=== PATIENT | female | born 1950 | race Caucasian/White ===

== ENCOUNTER 2016-10-26 09:10 | Outpatient (CLI) | payer OTHER ==
--- NOTE | 2016-10-26 10:55 | DIAGNOSTIC IMAGING REPORT ---
PROCEDURE: US NONVASCULAR EXTREMITY-LEFT INDICATION: CONTUSION HEMATOMA,NODULE LEFT UPPER ARM TECHNIQUE: Joseph scale and color Doppler ultrasound. COMPARISON: None. FINDINGS: There is a 1.1 x 1.0 x 0.9 cm subcutaneous midline soft tissue mass proximal to the antecubital fossa demonstrating mixed echogenicity (primarily slightly hyperechoic with peripheral areas of decreased echogenicity). There is a single focus of vascular flow peripherally. Underlying vascular structures are unremarkable. IMPRESSION: 1. 1.1 x 1.0 x 0.9 cm subcutaneous soft tissue mass proximal to the antecubital fossa, likely a hematoma.
[2016-11-16] MEDS ORDERED: ATENOLOL25 MG PO (11:45)
[2016-11-16] MEDS ORDERED: OMEPRAZOLE20 M1 PO (11:45)
[2016-11-16] MEDS ORDERED: VITAMIN C500 M1 PO (11:45)
[2016-11-16] MEDS ORDERED: BUPROPION HCL300 MG PO (11:46)
[2016-11-16] MEDS ORDERED: LIPITOR80 MG PO (11:46)
[2016-11-16] MEDS ORDERED: CILOSTAZOL100 MG PO (11:47)
[2016-11-16] MEDS ORDERED: FLUOXETINE HCL20 MG PO (11:48)
[2016-11-16] MEDS ORDERED: IRON325 MG PO (11:48)
[2016-11-16] MEDS ORDERED: LEVOTHYROXINE25 MCG PO (11:48)
[2016-11-16] MEDS ORDERED: VITAMIN D-31000 UNIT PO (11:49)
[2016-11-16] MEDS ORDERED: WARFARIN SODIU7.5 MG PO (11:49)
[2016-11-16] MEDS ORDERED: WARFARIN SODIUM5 MG PO (11:50)
[2016-11-16] MEDS ORDERED: PROBIOTI1 PO (11:51)
[2016-11-16] MEDS ORDERED: IMODIUM A-D (11:52)
== END 2016-10-26 23:00 ==
LOC: US SRH 09:10
DX: M79.9 Soft tissue disorder, unspecified (principal)

== ENCOUNTER 2016-11-03 08:53 | Outpatient (CLI) | payer OTHER ==
[2016-11-16] MEDS ORDERED: VITAMIN C500 M1 PO (11:45)
[2016-11-16] MEDS ORDERED: ATENOLOL25 MG PO (11:45)
[2016-11-16] MEDS ORDERED: OMEPRAZOLE20 M1 PO (11:45)
[2016-11-16] MEDS ORDERED: BUPROPION HCL300 MG PO (11:46)
[2016-11-16] MEDS ORDERED: LIPITOR80 MG PO (11:46)
[2016-11-16] MEDS ORDERED: CILOSTAZOL100 MG PO (11:47)
[2016-11-16] MEDS ORDERED: LEVOTHYROXINE25 MCG PO (11:48)
[2016-11-16] MEDS ORDERED: FLUOXETINE HCL20 MG PO (11:48)
[2016-11-16] MEDS ORDERED: IRON325 MG PO (11:48)
[2016-11-16] MEDS ORDERED: VITAMIN D-31000 UNIT PO (11:49)
[2016-11-16] MEDS ORDERED: WARFARIN SODIU7.5 MG PO (11:49)
[2016-11-16] MEDS ORDERED: WARFARIN SODIUM5 MG PO (11:50)
[2016-11-16] MEDS ORDERED: PROBIOTI1 PO (11:51)
[2016-11-16] MEDS ORDERED: IMODIUM A-D (11:52)
== END 2016-11-03 23:00 ==
LOC: LAB SRH 08:53
DX: R19.7 Diarrhea, unspecified (principal)
CPT/HCPCS: 90112; 90124; 90455; 99784

== ENCOUNTER 2016-11-18 12:27 | Outpatient (CLI) | payer OTHER ==
[~2016-11-18 12:27] MED LIST: ATENOLOL25 MG PO; BUPROPION HCL300 MG PO; CILOSTAZOL100 MG PO; FLUOXETINE HCL20 MG PO; IMODIUM A-D; IRON325 MG PO; LEVOTHYROXINE25 MCG PO; LIPITOR80 MG PO; OMEPRAZOLE20 M1 PO; PROBIOTI1 PO; VITAMIN C500 M1 PO; VITAMIN D-31000 UNIT PO; WARFARIN SODIU7.5 MG PO; WARFARIN SODIUM5 MG PO
--- NOTE | 2016-11-18 15:09 | DIAGNOSTIC IMAGING REPORT ---
PROCEDURE: XR BARIUM ENEMA W/AIR CONTRAST INDICATION: Incomplete colonoscopy. TECHNIQUE: Double contrast study. Fluoroscopy time, 3.9 minutes; 2204.08 mGy. 17 fluoroscopic images (25 images total). COMPARISON: None. FINDINGS: There is moderate redundancy and tortuosity of the sigmoid colon which is otherwise normal. The rest of the colon is normal, with limited reflux into the terminal ileum. No constricting or polypoid lesions. Appendix is visualized and appears normal IMPRESSION: 1. Negative completion barium enema.
== END 2016-11-18 23:00 ==
LOC: XR SRH 12:27
DX: R19.7 Diarrhea, unspecified (principal); Z12.11 Encounter for screening for malignant neoplasm of colon

== ENCOUNTER 2017-02-06 12:28 | Emergency (ER) | payer OTHER ==
--- NOTE | 2017-02-06 15:32 | ED NURSING NOTES ---
Clinical Report - Nurses [place] [address] [place] [address] 02/06/2017 12:29 Patient: ASAD MARKHAM TRIAGE Acuity: LEVEL 3. Chief Complaint: ABDOMINAL PAIN, VOMITING and DIARRHEA. Alert. No acute distress. --12:49 Maggy Friedman R.N. 12:37 02/06/17. BP: 152/87. HR: 87. RR: 16. O2 saturation: 100% on room air. Temp: 97.9 F (oral). Pain level now: 01/23. --12:49 Maggy Friedman R.N. Weight: 62.5 kg stated. Height/Length: 60 inches Per Patient. BMI: 26.9. --12:42 Maggy Friedman R.N. Medications Omeprazole Oral. --12:46 Maggy Friedman R.N. Cilostazol Oral. --12:46 Maggy Friedman R.N. Levothyroxine Sodium Oral. --12:46 Maggy Friedman R.N. Atorvastatin Calcium Oral. --12:46 Maggy Friedman R.N. Atenolol Oral. --12:47 Maggy Friedman R.N. Warfarin Sodium Oral 7.5 mg (5 x week 7.5 mg/ 2 x week 5 mg). --12:48 Maggy Friedman R.N. Medication/allergy information source: the patient. --12:49 Maggy Friedman R.N. Allergies Codeine. Definite Moderate(rash, SOB) Sulfa Drugs. Definite Severe(swelling) (skin cracked) --12:48 Maggy Friedman R.N. History Arrived by private vehicle. Historian: patient. Accompanied by spouse. Primary physician (Daisy). Onset. (4 months ago). ( Pt reports she has diarrhea and vomits daily and this has been going on since September last year. She states she has seen her doctor many times and had many tests and "they cannot figure out what is going on." Pt states her she is waiting for a CT, and was told if she came to the ER she would not have to wait. Pt reports fatigue and frustration.). Treatment CLOTHING CONSULTANT: Recently seen at another facility in the office. PAST MEDICAL HX: The patient has had a hysterectomy. SOCIAL HX: Never smoker. Occasional alcohol use. History of drug use: marijuana. FALL RISK ASSESSMENT: Fall risk assessment completed. No fall risk identified. NUTRITIONAL RISK ASSESSMENT: The nutritional risk assessment revealed no deficiencies. FUNCTIONAL ASSESSMENT: Functional assessment: no impairments noted. LEARNING NEEDS ASSESSMENT: The learning needs assessment revealed no barriers. SKIN INTEGRITY ASSESSMENT: Skin integrity risk assessment completed. No skin integrity risk identified. --12:49 Maggy Friedman R.N. PROBLEMS: Gastroesophageal Reflux. Hyperlipidemia. Peripheral Vascular Disease. Depression. Anxiety Reaction. Hypertension. Hematoma. Borderline diabetic. Hyperthyroidism. Hypothyroidism. Claudication. Peripheral Arterial Occlusive Disease. Anemia. --12:39 Maggy Friedman R.N. ADDITIONAL SURGERIES: Aortic femoral bypass. Arm. Cataract Surgery. Hysterectomy. Oophorectomy. --12:39 Maggy Friedman R.N. Assessment GENERAL / NEURO / PSYCH: Alert. Oriented X 4. Appears in no acute distress. Quentin Coma Scale: 15- eyes open spontaneously (4); best verbal response- oriented x 4 (5); best motor response- obeys commands (6). Patient appears calm and cooperative. RESPIRATORY: Respirations not labored. CVS: Capillary refill less than 2 seconds. GI / : Abdomen soft. SKIN: Mucous membranes are pink. Skin is warm and dry. --12:49 Maggy Friedman R.N. Interventions ID band on patient. To treatment room. --12:49 Maggy Friedman R.N. PHYSICAL ASSESSMENT 12:50 02/06/17. Ambulatory to room. Patient gowned. GENERAL / NEURO / PSYCH: Alert. Oriented X 4. Appears in no acute distress. HEENT: Mucous membranes are pink. RESPIRATORY: Respirations not labored. CVS: Capillary refill less than 2 seconds. GI / : Abdomen soft and nontender. SKIN: Skin is warm and dry. --12:50 Maggy Friedman R.N. NURSING PROGRESS NOTES 12:50 02/06/17. Patient gowned. Two patient identifiers checked. Call light placed in reach. Side rails up x 1. Bed placed in lowest position. Brakes of bed on. Patient ready for evaluation- chart flagged and ED physician and PA notified. --12:50 Maggy Friedman R.N. 13:51 02/06/2017 Started bag #1 1000 mL IV Fluids IV NS (Saline); at 1000 mL/hr over 1 hour(s) via site #1 via IV pump. Allergies verified and confirmed 5 rights. IV patency established. IV site checked: no pain, redness, or swelling. IV flushed thoroughly pre- and post-medication administration. --14:16 Sapphire Esparza R.N. 14:16 02/06/2017 Site #1 started via IV in the right antecubital space with an 20g angiocath using 2% intra-dermal lidocaine, with aseptic technique; one attempt. Blood drawn: rainbow set. Labeled in the presence of the patient and sent to the lab. Saline lock flushed with 10 mL saline. --14:16 Sapphire Esparza R.N. 14:16 02/06/2017 Started 20 meq of KCL (Potassium Chloride) IVPB in bag #1 100 mL; at 100 mL/hr over 1 hour(s) via site #1 via IV pump. Allergies verified and confirmed 5 rights. IV patency established. IV site checked: no pain, redness, or swelling. IV flushed thoroughly pre- and post-medication administration. --14:16 Sapphire Esparza R.N. 14:18 02/06/17. BP: 129/52. HR: 80. RR: 18. O2 saturation: 98%. Temp: 98.4 F. Pain level now 0/10. --14:20 Sapphire Esparza R.N. EKG time: (14:47). EKG was performed by a tech and shown to the PA. --14:52 Sheryl Winchester 15:14 02/06/17. ( Gave pt ice). --15:14 Leonides Crisostomo R.N. 15:35 02/06/17. BP: 134/58. HR: 85. RR: 16. O2 saturation: 100% on room air. --15:36 Maggy Friedman R.N. 16:29 02/06/2017 Site #1 removed upon discharge. Catheter intact. Pressure dressing applied. --16:29 Sapphire Esparza R.N. 16:02/06/2017 IV Fluids IV NS Discontinued: bag #1 infused upon discharge. Total amount infused: 700 mL. IV patency established. IV site checked: no pain, redness, or swelling. IV flushed thoroughly. --16:29 Sapphire Esparza R.N. 16:02/06/2017 KCL IVPB Discontinued: bag #1 infused upon discharge. Total amount infused: 100 mL. IV patency established. IV site checked: no pain, redness, or swelling. IV flushed thoroughly. --16:29 Sapphire Esparza R.N. DISPOSITION / DISCHARGE Departure time: 16:Feb 06 2017. Condition at departure: improved. No learning barriers present. Discharge instructions provided and reviewed with the patient. Reviewed warnings. Reviewed medication(s). Treatments reviewed. Reviewed referrals. Patient verbalized understanding. Written instructions provided in [place]. The patient was discharged home and accompanied by spouse. She left the Emergency Department ambulatory and via private vehicle. Spouse driving. --16:30 Sapphire Esparza R.N. 16:30 02/06/17. BP: 134/62. HR: 90. RR: 18. O2 saturation: 94%. Temp: 97.9 F. Pain level now 0/10. --16:30 Sapphire Esparza R.N. Locked/Released at 02/07/2017 15:56 by Maggy Friedman R.N.
--- NOTE | 2017-02-06 15:32 | ED ORDER SUMMARY ---
..... Patient: ASAD MARKHAM OrderSheet [facility] VisitID: [id number] [address] [place] [address] 66y, F Registration Date/Time: 02/06/2017 ORDER SHEET Weight: 62.5 kg (stated) Allergies: Codeine, Sulfa Drugs GENERAL ORDERS: CBC w Diff Urgent (13:22 02/06/2017 EKoroleva P.A.-C) (Ack 13:24 KHoerner) (13:25 MWinterer R.N.) CMP Urgent (13:22 02/06/2017 EKoroleva P.A.-C) (Ack 13:24 KHoerner) (13:25 MWinterer R.N.) UA-Culture if indicated Urgent (13:22 02/06/2017 EKoroleva P.A.-C) (Ack 13:24 KHoerner) (14:13 LWhalen R.N.) Lipase Urgent (13:22 02/06/2017 EKoroleva P.A.-C) (Ack 13:24 KHoerner) (13:25 MWinterer R.N.) TSH Urgent (13:34 02/06/2017 EKoroleva P.A.-C) (Ack 13:39 KHoerner) (14:10 KHoerner) CRP Urgent (13:38 02/06/2017 EKoroleva P.A.-C) (Ack 13:39 KHoerner) (14:10 KHoerner) CBC w Diff Urgent (13:38 02/06/2017 EKoroleva P.A.-C) (Ack 13:39 KHoerner) (14:10 KHoerner) PT with INR Urgent (13:38 02/06/2017 EKoroleva P.A.-C) (Ack 13:39 KHoerner) (14:10 KHoerner) PTT Urgent (13:38 02/06/2017 EKoroleva P.A.-C) (Ack 13:39 KHoerner) (14:10 KHoerner) -- (free t4) (13:39 02/06/2017 EKoroleva P.A.-C) (Ack 13:41 KHoerrc) (14:10 TRAMAINEoerner) - (13:39 02/06/2017 EKoroleva P.A.-C) (Cancelled: Other13:40 EKoroleva P.A.-C) EKG - ER Stat (14:05 02/06/2017 EKoroleva P.A.-C) (Ack 14:10 TRAMAINEoerrc) (14:[facility] Abd/Pel w Cont (No) (see lab) Urgent (14:12 02/06/2017 EKoroleva P.A.-C) (Ack 14:13 oerner) (14:24 oerner) MEDICATION ORDERS: IV FLUIDS: IV NS : initial bolus 1000 mL (1000 mL/hr), then 1000 mL/hr for X1 (NOW); Breezy (13:22 02/06/2017 EKoroleva P.A.-C) (Ack 13:25 MWinterer R.N.) (14:16 LWhalen R.N.) KCl IV 20 meq/100mL (Run no faster than 10 units/hr) (14:05 02/06/2017 EKoroleva P.A.-C) (14:16 LWhalen R.N.) ORDER SHEET NOTES: [Electronically signed by Princess LangeABrittany-C (19:31 02/06/2017)] [Electronically signed by Maggy Friedman R.N. (15:56 02/07/2017)] [Electronically locked/signed by Maggy Friedman R.N. (15:56 02/07/2017)]
--- NOTE | 2017-02-06 15:32 | ED CLINICAL REPORT ---
Clinical Report - Physicians/Mid Levels [facility] [address] [place] [address] 02/06/2017 12:29 Patient: ASAD MARKHAM Time Seen: 13:36 Feb 06 2017. Arrived- By private vehicle. Historian- patient. HISTORY OF PRESENT ILLNESS Chief Complaint: ABDOMINAL PAIN. It is described as "pain" and it is described as located in the left abdomen. This started 4 - 6 months FLOOR LAYER and is still present. (Pt on warfarin due to prior clots, reports diarrhea in am/ emesis due to pain epigastric over last 4-5 months. Patient denies melana. Patient reports fatigue. Decreased appetite.). Similar symptoms previously: Recent medical care: The patient was seen recently by a health care provider. REVIEW OF SYSTEMS No constipation, black stools, hematemesis, difficulty with urination or bloody stools. No fever, headache, sore throat, chest pain or chills. All systems otherwise negative, except as recorded above. SOCIAL HISTORY Never smoker. Alcohol use. No drug use. ADDITIONAL NOTES The nursing notes have been reviewed. PHYSICAL EXAM Vital Signs: 02/06/2017 12:37 BP: 152/87. HR: 87. RR: 16. O2 saturation: 100%. Temp: 97.9 F. Pain level now: 4/10. Appearance: Alert. ENT: Nose normal. Neck: Normal inspection. CVS: Normal heart rate and rhythm. Heart sounds normal. Respiratory: No respiratory distress. Breath sounds normal. No accessory muscle use. Neuro: Oriented X 3. No motor deficit. LABS, X-RAYS, AND EKG Abdominal CT: IMPRESSION: 1. Liquid stool and air fluid levels throughout the colon without focal pericolonic inflammation or evidence for obstruction. Appearance is most consistent with enterocolitis of uncertain etiology or malabsorptive state. Vascular insufficiency is possible, although the distribution is somewhat uncharacteristic. 2. 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 3. Left renal cortical scarring. 4. Status post hysterectomy. 5. 3 mm left lung nodule, likely post infectious/inflammatory. 6. Findings called to the emergency room. All CT scans at this facility use dose modulation, iterative reconstruction, and/or weight-based dosing when appropriate to reduce radiation dose to as low as reasonably achievable. Electronically Final signed by:Callie Briseno MD 02/06/2017 7:04:44 PM. Laboratory Tests: UA-Culture if indicated: (JERI: 02/06/2017 14:10) ( [facility] 02/06/2017 14:46) Final results Test Result Flag Units (Reference) URINE COLOR YELLOW URINE APPEARANCE HAZY URINE GLUCOSE NEGATIVE (NEGATIVE) URINE BILIRUBIN NEGATIVE (NEGATIVE) URINE KETONE NEGATIVE (NEGATIVE) URINE SPECIFIC GRAVITY 1.010 (1.010-1.030) URINE PH 6.0 (5.0-8.0) URINE PROTEIN TRACE (NEGATIVE) URINE UROBILINOGEN 0.2 EU/dL (0.2-1.0) URINE NITRITE NEGATIVE (NEGATIVE) URINE BLOOD TRACE-INTACT (NEGATIVE) URINE LEUK ESTERASE NEGATIVE (NEGATIVE) URINE RBC 0-1 rbc/hpf (0-1) URINE WBC 3-5 wbc/hpf (0-1) URINE EPITHELIAL CELLS 5-10 EPI/hpf (0-5) URINE BACTERIA NONE SEEN (NONE SEEN) URINE COMMENT CULT NOT INDICATED URINE CULTURES ARE SET-UP BASED ON THE FOLLOWING CRITERIA:POSITIVE NITRITEPOSITIVE LEUKOCYTE ESTERASEGREATER THAN 10 WHITE BLOOD CELLSMODERATE (2+) OR GREATER BACTERIA CBC w Diff: (JERI: 02/06/2017 13:20) ( [facility] 02/06/2017 13:34) Final results Test Result Flag Units (Reference) WHITE BLOOD COUNT 4.5 K/uL (4.5-11.5) RED BLOOD COUNT 4.24 M/uL (4.00-5.20) HEMOGLOBIN 12.6 gm/dL (12.0-16.0) HEMATOCRIT 36.9 % (36.0-46.0) MEAN CELL VOLUME 87 fL (80-100) MEAN CORPUSCULAR HGB 30 pg (26-34) MEAN CORPUSCULAR HGB CONC 34 g/dL (31-37) RED CELL DISTRIBUTION WIDTH 14.0 % (11.6-14.8) PLATELET COUNT 215 K/uL (150-400) NEUTROPHIL % 61.7 % (50-75) LYMPH % 23.9 L % (25-40) MONO % 11.1 % (3-14) EOSINOPHIL % 2.8 % (0-4) BASOPHIL % 0.5 % (0-2) PT with INR: (JERI: 02/06/2017 13:20) ( [facility] 02/06/2017 15:28) Final results Test Result Flag Units (Reference) INR 1.8 H (0.8-1.2) Low Intensity Therapy: INR 1.5-2.0 PT range 18.5-23.1Mod.Intensity Therapy: INR 2.0-3.0 PT range 23.1-31.5High Intensity Therapy: INR 2.5-3.5 PT range 27.4-35.5High Intensity Therapy 2: INR 3.0-4.0 PT range 31.5-39.3 APTT 79 H SECONDS (24-34) TSH: (JERI: 02/06/2017 13:20) ( [facility] 02/06/2017 14:36) Final results Test Result Flag Units (Reference) THYROID STIMULATING HORMONE 1.383 uIU/mL (0.30-3.74) CMP: (JERI: 02/06/2017 13:20) ( [facility] 02/06/2017 14:46) Final results Test Result Flag Units (Reference) GLUCOSE 111 H mg/dL (70-110) BUN 13 mg/dL (7-18) CREATININE 1.0 mg/dL (0.6-1.3) Estimated GFR 59.33 mL/min Estimated GFR- >60 mL/min Note: Persistent reduction over 3 months in eGFR<60 mL/min/1.73 m2 defines CKD. Patients with eGFR values>=60 mL/min/1.73 m2 may also have CKD if evidence ofpersistent proteinuria. Additional information may be foundat www.kidney.org. SODIUM 139 mmol/L (136-145) POTASSIUM 2.7 *L mmol/L (3.5-5.1) CRITICAL RESULTS CALLEDCalled to BEE IN ED 02/06/17 1405Were 2 patient identifiers used? Y CHLORIDE 104 mmol/L (98-107) CARBON DIOXIDE 25 mmol/L (21-32) CALCIUM 9.5 mg/dL (8.5-10.1) TOTAL PROTEIN 7.6 g/dL (6.4-8.2) ALBUMIN 3.6 g/dL (3.3-5.0) BILIRUBIN, TOTAL 0.4 mg/dL (0.0-1.0) ALKALINE PHOSPHATASE 131 H U/L (46-116) AST (SGOT) 20 U/L (15-37) ALT (SGPT) 32 U/L (12-78) LIPASE 101 U/L (73-393) MAGNESIUM 1.7 L mg/dL (1.8-2.4) FREE T4 (FREE THYROXINE) 1.25 ng/dL (0.78-4.13) C-REACTIVE PROTEIN 2.9 H mg/dL (0.0-0.9) . PROGRESS AND PROCEDURES Course of Care: Colonoscopy 11/18/16: Colon Tortuosity, had/ f.u barium enema w/ air contrast: negative completion of barium enema. Moderate redundancy and tortuosity of the sigmoid colon, otherwise normal. light brown, hemoccult neg stool. patient is urged to follow up outpatient with vascular. patient is very stable. Patient to f/u outpatient this is a chronic concern which has been ongoing for almost 6 months. Patient should follow-up with vascular, as well as gastroenterology. She has had previous colonoscopy. During the time in the ED, the following DDX were considered: acute surgical abdomen, hemodynamic or metabolic instability, dehydration, gastroenteritis-viral, food borne, or bacterial, food intolerance, irritable or inflammatory bowel, infection, sepsis. 02/06/2017 16:30 BP: 134/62. HR: 90. RR: 18. O2 saturation: 94%. Temp: 97.9 F. 02/06/2017 15:35 BP: 134/58. HR: 85. RR: 16. O2 saturation: 100%. Patient is stable. Symptoms better. Patient/family counseled. Disposition: Discharged. CLINICAL IMPRESSION Chronic generalized abdominal pain of unknown cause. Diarrhea Hypokalemia INSTRUCTIONS Drink plenty of fluids. (Follow up with VASCULAR Follow up with GI). Warnings: Further evaluation is necessary. Prescription Medications: Zofran (orally disintegrating tablets) 4 mg: take 1 orally every 6 hours for 5 days as needed for nausea. Dispense fifteen (15). No refill. Substitution is permissible. Klor-Con 10 mEq: take 1 tablet orally every 8 hours. Dispense twenty (20). No refills. Substitution is permissible. Follow-up: Follow up with a specialist. (Electronically signed by Princess Lange P.A.-C 02/06/2017 19:31) Addenda for ASAD MARKHAM VisitID: [id number] Date: 02/06/2017 02/07/2017 0:28 EKG; vent rate 80 Pr interval 152. NO st changs or elevation qrs 88 normal sinus rhythm (Electronically signed by Princess Lange P.A.-C - 02/07/2017 0:28)
--- NOTE | 2017-02-06 15:32 | ED CLINICAL REPORT ---
Clinical Report - Physicians/Mid Levels [facility] [address] [place] [address] 02/06/2017 12:29 Patient: ASAD MARKHAM Time Seen: 13:36 Feb 06 2017. Arrived- By private vehicle. Historian- patient. HISTORY OF PRESENT ILLNESS Chief Complaint: ABDOMINAL PAIN. It is described as "pain" and it is described as located in the left abdomen. This started 4 - 6 months [employer] and is still present. (Pt on warfarin due to prior clots, reports diarrhea in am/ emesis due to pain epigastric over last 4-5 months. Patient denies melana. Patient reports fatigue. Decreased appetite.). Similar symptoms previously: Recent medical care: The patient was seen recently by a health care provider. REVIEW OF SYSTEMS No constipation, black stools, hematemesis, difficulty with urination or bloody stools. No fever, headache, sore throat, chest pain or chills. All systems otherwise negative, except as recorded above. SOCIAL HISTORY Never smoker. Alcohol use. No drug use. ADDITIONAL NOTES The nursing notes have been reviewed. PHYSICAL EXAM Vital Signs: 02/06/2017 12:37 BP: 152/87. HR: 87. RR: 16. O2 saturation: 100%. Temp: 97.9 F. Pain level now: 4/10. Appearance: Alert. ENT: Nose normal. Neck: Normal inspection. CVS: Normal heart rate and rhythm. Heart sounds normal. Respiratory: No respiratory distress. Breath sounds normal. No accessory muscle use. Neuro: Oriented X 3. No motor deficit. LABS, X-RAYS, AND EKG Abdominal CT: IMPRESSION: 1. Liquid stool and air fluid levels throughout the colon without focal pericolonic inflammation or evidence for obstruction. Appearance is most consistent with enterocolitis of uncertain etiology or malabsorptive state. Vascular insufficiency is possible, although the distribution is somewhat uncharacteristic. 2. 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 3. Left renal cortical scarring. 4. Status post hysterectomy. 5. 3 mm left lung nodule, likely post infectious/inflammatory. 6. Findings called to the emergency room. All CT scans at this facility use dose modulation, iterative reconstruction, and/or weight-based dosing when appropriate to reduce radiation dose to as low as reasonably achievable. Electronically Final signed by:Callie Briseno MD 02/06/2017 7:04:44 PM. Laboratory Tests: UA-Culture if indicated: (JERI: 02/06/2017 14:10) ( [facility] 02/06/2017 14:46) Final results Test Result Flag Units (Reference) URINE COLOR YELLOW URINE APPEARANCE HAZY URINE GLUCOSE NEGATIVE (NEGATIVE) URINE BILIRUBIN NEGATIVE (NEGATIVE) URINE KETONE NEGATIVE (NEGATIVE) URINE SPECIFIC GRAVITY 1.010 (1.010-1.030) URINE PH 6.0 (5.0-8.0) URINE PROTEIN TRACE (NEGATIVE) URINE UROBILINOGEN 0.2 EU/dL (0.2-1.0) URINE NITRITE NEGATIVE (NEGATIVE) URINE BLOOD TRACE-INTACT (NEGATIVE) URINE LEUK ESTERASE NEGATIVE (NEGATIVE) URINE RBC 0-1 rbc/hpf (0-1) URINE WBC 3-5 wbc/hpf (0-1) URINE EPITHELIAL CELLS 5-10 EPI/hpf (0-5) URINE BACTERIA NONE SEEN (NONE SEEN) URINE COMMENT CULT NOT INDICATED URINE CULTURES ARE SET-UP BASED ON THE FOLLOWING CRITERIA:POSITIVE NITRITEPOSITIVE LEUKOCYTE ESTERASEGREATER THAN 10 WHITE BLOOD CELLSMODERATE (2+) OR GREATER BACTERIA CBC w Diff: (JERI: 02/06/2017 13:20) ( [facility] 02/06/2017 13:34) Final results Test Result Flag Units (Reference) WHITE BLOOD COUNT 4.5 K/uL (4.5-11.5) RED BLOOD COUNT 4.24 M/uL (4.00-5.20) HEMOGLOBIN 12.6 gm/dL (12.0-16.0) HEMATOCRIT 36.9 % (36.0-46.0) MEAN CELL VOLUME 87 fL (80-100) MEAN CORPUSCULAR HGB 30 pg (26-34) MEAN CORPUSCULAR HGB CONC 34 g/dL (31-37) RED CELL DISTRIBUTION WIDTH 14.0 % (11.6-14.8) PLATELET COUNT 215 K/uL (150-400) NEUTROPHIL % 61.7 % (50-75) LYMPH % 23.9 L % (25-40) MONO % 11.1 % (3-14) EOSINOPHIL % 2.8 % (0-4) BASOPHIL % 0.5 % (0-2) PT with INR: (JREI: 02/06/2017 13:20) ( [facility] 02/06/2017 15:28) Final results Test Result Flag Units (Reference) INR 1.8 H (0.8-1.2) Low Intensity Therapy: INR 1.5-2.0 PT range 18.5-23.1Mod.Intensity Therapy: INR 2.0-3.0 PT range 23.1-31.5High Intensity Therapy: INR 2.5-3.5 PT range 27.4-35.5High Intensity Therapy 2: INR 3.0-4.0 PT range 31.5-39.3 APTT 79 H SECONDS (24-34) TSH: (JERI: 02/06/2017 13:20) ( [facility] 02/06/2017 14:36) Final results Test Result Flag Units (Reference) THYROID STIMULATING HORMONE 1.383 uIU/mL (0.30-3.74) CMP: (JERI: 02/06/2017 13:20) ( [facility] 02/06/2017 14:46) Final results Test Result Flag Units (Reference) GLUCOSE 111 H mg/dL (70-110) BUN 13 mg/dL (7-18) CREATININE 1.0 mg/dL (0.6-1.3) Estimated GFR 59.33 mL/min Estimated GFR- >60 mL/min Note: Persistent reduction over 3 months in eGFR<60 mL/min/1.73 m2 defines CKD. Patients with eGFR values>=60 mL/min/1.73 m2 may also have CKD if evidence ofpersistent proteinuria. Additional information may be foundat www.kidney.org. SODIUM 139 mmol/L (136-145) POTASSIUM 2.7 *L mmol/L (3.5-5.1) CRITICAL RESULTS CALLEDCalled to BEE IN ED 02/06/17 1405Were 2 patient identifiers used? Y CHLORIDE 104 mmol/L (98-107) CARBON DIOXIDE 25 mmol/L (21-32) CALCIUM 9.5 mg/dL (8.5-10.1) TOTAL PROTEIN 7.6 g/dL (6.4-8.2) ALBUMIN 3.6 g/dL (3.3-5.0) BILIRUBIN, TOTAL 0.4 mg/dL (0.0-1.0) ALKALINE PHOSPHATASE 131 H U/L (46-116) AST (SGOT) 20 U/L (15-37) ALT (SGPT) 32 U/L (12-78) LIPASE 101 U/L (73-393) MAGNESIUM 1.7 L mg/dL (1.8-2.4) FREE T4 (FREE THYROXINE) 1.25 ng/dL (0.78-4.13) C-REACTIVE PROTEIN 2.9 H mg/dL (0.0-0.9) . PROGRESS AND PROCEDURES Course of Care: Colonoscopy 11/18/16: Colon Tortuosity, had/ f.u barium enema w/ air contrast: negative completion of barium enema. Moderate redundancy and tortuosity of the sigmoid colon, otherwise normal. light brown, hemoccult neg stool. patient is urged to follow up outpatient with vascular. patient is very stable. Patient to f/u outpatient this is a chronic concern which has been ongoing for almost 6 months. Patient should follow-up with vascular, as well as gastroenterology. She has had previous colonoscopy. During the time in the ED, the following DDX were considered: acute surgical abdomen, hemodynamic or metabolic instability, dehydration, gastroenteritis-viral, food borne, or bacterial, food intolerance, irritable or inflammatory bowel, infection, sepsis. 02/06/2017 16:30 BP: 134/62. HR: 90. RR: 18. O2 saturation: 94%. Temp: 97.9 F. 02/06/2017 15:35 BP: 134/58. HR: 85. RR: 16. O2 saturation: 100%. Patient is stable. Symptoms better. Patient/family counseled. Disposition: Discharged. CLINICAL IMPRESSION Chronic generalized abdominal pain of unknown cause. Diarrhea Hypokalemia INSTRUCTIONS Drink plenty of fluids. (Follow up with VASCULAR Follow up with GI). Warnings: Further evaluation is necessary. Prescription Medications: Zofran (orally disintegrating tablets) 4 mg: take 1 orally every 6 hours for 5 days as needed for nausea. Dispense fifteen (15). No refill. Substitution is permissible. Klor-Con 10 mEq: take 1 tablet orally every 8 hours. Dispense twenty (20). No refills. Substitution is permissible. Follow-up: Follow up with a specialist. (Electronically signed by Princess Lange P.A.-C 02/06/2017 19:31) Addenda for ASAD MARKHAM VisitID: [id number] Date: 02/06/2017 02/07/2017 0:28 EKG; vent rate 80 Pr interval 152. NO st changs or elevation qrs 88 normal sinus rhythm (Electronically signed by Princess Lange P.A.-C - 02/07/2017 0:28)
--- NOTE | 2017-02-06 15:32 | ED ORDER SUMMARY ---
..... Patient: ASAD MARKHAM OrderSheet [facility] VisitID: [id number] [address] [place] [address] 66y, F Registration Date/Time: 02/06/2017 ORDER SHEET Weight: 62.5 kg (stated) Allergies: Codeine, Sulfa Drugs GENERAL ORDERS: CBC w Diff Urgent (13:22 02/06/2017 EKoroleva P.A.-C) (Ack 13:24 KHoerner) (13:25 MWinterer R.N.) CMP Urgent (13:22 02/06/2017 EKoroleva P.A.-C) (Ack 13:24 KHoerner) (13:25 MWinterer R.N.) UA-Culture if indicated Urgent (13:22 02/06/2017 EKoroleva P.A.-C) (Ack 13:24 KHoerner) (14:13 LWhalen R.N.) Lipase Urgent (13:22 02/06/2017 EKoroleva P.A.-C) (Ack 13:24 KHoerner) (13:25 MWinterer R.N.) TSH Urgent (13:34 02/06/2017 EKoroleva P.A.-C) (Ack 13:39 KHoerner) (14:10 KHoerner) CRP Urgent (13:38 02/06/2017 EKoroleva P.A.-C) (Ack 13:39 KHoerner) (14:10 KHoerner) CBC w Diff Urgent (13:38 02/06/2017 EKoroleva P.A.-C) (Ack 13:39 KHoerner) (14:10 KHoerner) PT with INR Urgent (13:38 02/06/2017 EKoroleva P.A.-C) (Ack 13:39 KHoerner) (14:10 KHoerner) PTT Urgent (13:38 02/06/2017 EKoroleva P.A.-C) (Ack 13:39 KHoerner) (14:10 KHoerner) -- (free t4) (13:39 02/06/2017 EKoroleva P.A.-C) (Ack 13:41 KHoerrc) (14:10 TRAMAINEoerner) - (13:39 02/06/2017 EKoroleva P.A.-C) (Cancelled: Other13:40 EKoroleva P.A.-C) EKG - ER Stat (14:05 02/06/2017 EKoroleva P.A.-C) (Ack 14:10 TRAMAINEoerrc) (14:[facility] Abd/Pel w Cont (No) (see lab) Urgent (14:12 02/06/2017 EKoroleva P.A.-C) (Ack 14:13 oerner) (14:24 oerner) MEDICATION ORDERS: IV FLUIDS: IV NS : initial bolus 1000 mL (1000 mL/hr), then 1000 mL/hr for X1 (NOW); Breezy (13:22 02/06/2017 EKoroleva P.A.-C) (Ack 13:25 MWinterer R.N.) (14:16 LWhalen R.N.) KCl IV 20 meq/100mL (Run no faster than 10 units/hr) (14:05 02/06/2017 EKoroleva P.A.-C) (14:16 LWhalen R.N.) ORDER SHEET NOTES: [Electronically signed by Princess LangeABrittany-C (19:31 02/06/2017)] [Electronically signed by Maggy Friedman R.N. (15:56 02/07/2017)] [Electronically locked/signed by Maggy Friedman R.N. (15:56 02/07/2017)]
--- NOTE | 2017-02-06 19:09 | DIAGNOSTIC IMAGING REPORT ---
PROCEDURE: ABDOMEN/PELVIS WITH CONTRAST CLINICAL INDICATION: ABDOMINAL PAIN TECHNIQUE: 125 ml of Isovue 300 were injected intravenously and axial images were obtained of the abdomen and pelvis with sagittal and coronal reformations. COMPARISON: None. FINDINGS: ABDOMEN: 3 mm nodule anterolaterally in the left lower lobe. (Series 3 image 8). There is heavy mixed calcified and noncalcified atherosclerosis of the abdominal aorta. There is an aortobi-iliac graft anastomoses just above the bifurcation. About 3.2 cm distal to the proximal anastomosis, there is thrombosis of the right common iliac branch. A very diminutive right common iliac/right internal iliac is reconstituted distally from collaterals. There is a left external iliac stent or bypass graft present. The left kidney demonstrates cortical atrophy in the upper and lower pole and an overall slightly diminutive size compared to the right. Both kidneys demonstrate symmetric perfusion and excretion of contrast. Liver, gallbladder, pancreas, adrenal glands, spleen, and stomach are otherwise normal. The colon is of normal caliber but demonstrates liquid stool and air fluid levels diffusely. No focal pericolonic inflammation. Small bowel loops are decompressed. Mesentery is normal. No inflammation. PELVIS: The appendix and pelvic small bowel loops are normal. Liquid stool seen in the distal colon and proximal rectum. The uterus is surgically absent. Urinary bladder is unremarkable. Surgical changes of avascular intervention in both inguinal regions. Intact osseous structures. IMPRESSION: 1. Liquid stool and air fluid levels throughout the colon without focal pericolonic inflammation or evidence for obstruction. Appearance is most consistent with enterocolitis of uncertain etiology or malabsorptive state. Vascular insufficiency is possible, although the distribution is somewhat uncharacteristic. 2. 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 3. Left renal cortical scarring. 4. Status post hysterectomy. 5. 3 mm left lung nodule, likely post infectious/inflammatory. 6. Findings called to the emergency room. All CT scans at this facility use dose modulation, iterative reconstruction, and/or weight-based dosing when appropriate to reduce radiation dose to as low as reasonably achievable.
--- NOTE | 2017-02-07 15:56 | ED MED RECONCILIATION SUMMARY ---
Patient: ASAD MARKHAM Medication Reconciliation Report [facility] VisitID: [id number] [address] [place] [place] [address] 66y, F Registration Date/Time: 02/06/2017 Weight: 62.5 kg Height/Length: 60 in. BMI: 26.9 ALLERGIES: Codeine, Sulfa Drugs The patient's Home Medications are listed below: THE FOLLOWING MEDICATIONS NEED TO BE RECONCILED: Atenolol Oral Atorvastatin Calcium Oral Cilostazol Oral Levothyroxine Sodium Oral Omeprazole Oral Warfarin Sodium Oral 7.5 mg, 5 x week 7.5 mg/ 2 x week 5 mg The source(s) of the original Home Medication information: patient The following Medications were given to the patient in the Emergency Department: KCL [IVPB] IVPB bolus 0, then 20 meq 100 mL/hr, administered: 02/06/2017 2:16:00 PM IV NS IV Fluids bolus 0, then 1000 mL/hr, administered: 02/06/2017 1:51:00 PM The following Medications were prescribed to the patient: Zofran (orally disintegrating tablets) 4 mg: take 1 orally every 6 hours for 5 days as needed for nausea. Dispense fifteen (15). No refill. Substitution is permissible. -- Princess Lange PBrittanyACarolee Klor-Con 10 mEq: take 1 tablet orally every 8 hours. Dispense twenty (20). No refills. Substitution is permissible. -- Princess Lange P.ABrittany-Regan
--- NOTE | 2017-02-07 15:56 | ED DISCHARGE INSTRUCTIONS ---
Patient: ASAD MARKHAM General Instructions [facility] VisitID: [id number] [address] [place] [address] 66y, F Registration Date/Time: 02/06/2017 Chronic generalized abdominal pain of unknown cause. Diarrhea Hypokalemia INSTRUCTIONS Drink plenty of fluids. (Follow up with VASCULAR Follow up with GI). Warnings: Further evaluation is necessary. Prescription Medications: Zofran (orally disintegrating tablets) 4 mg: take 1 orally every 6 hours for 5 days as needed for nausea. Dispense fifteen (15). No refill. Substitution is permissible. Klor-Con 10 mEq: take 1 tablet orally every 8 hours. Dispense twenty (20). No refills. Substitution is permissible. Follow-up: Follow up with a specialist. ADDITIONAL INFORMATION Abdominal Pain, Unknown Cause (Female) The exact cause of your abdominal (stomach) pain is not certain. This does not mean that this is something to worry about, or the right tests were not done. Everyone likes to know the exact cause of the problem, but sometimes with abdominal pain, there is no clear-cut cause, and this could be a good thing. The good news is that your symptoms can be treated, and you will feel better. Your condition does not seem serious now; however, sometimes the signs of a serious problem may take more time to appear. For this reason,it is important for you to watch for any new symptoms, problems,or worsening of your condition. Over the next few days, the abdominal pain may come and go, or be continuous. Other common symptoms can include nausea and vomiting. Sometimes it can be difficult to tell if you feel nauseous, you may just feel bad and not associate that feeling with nausea. Constipation, diarrhea, and a fever may go along with the pain. The pain may continue even if treated correctly over the following days. Depending on how things go, sometimes the cause can become clear and may require further or different treatment. Additional evaluations, medications, or tests may be needed. Home care Your health care provider may prescribe medications for pain, symptoms, or an infection. Follow the health care provider's instructions for taking these medications. General care Rest until your next exam. No strenuous activities. Try to find positions that ease discomfort. A small pillow placed on the abdomen may help relieve pain. Something warm on your abdomen (such as a heating pad) may help, but be careful not to burn yourself. Diet Do not force yourself to eat, especially if having cramps, vomiting, or diarrhea. Water is important so you do not get dehydrated. Soup may also be good. Sports drinks may also help, especially if they are not too acidic. Make sure you don't drink sugary drinks as this can make things worse. Take liquids in small amounts. Do not guzzle them. Caffeine sometimes makes the pain and cramping worse. Avoid dairy products if you have vomiting or diarrhea. Don't eat large amounts at a time. Wait a few minutes between bites. Eat a diet low in fiber (called a low-residue diet). Foods allowed include refined breads, white rice, fruit and vegetable juices without pulp, tender meats. These foods will pass more easily through the intestine. Avoid whole-grain foods, whole fruits and vegetables, meats, seeds and nuts, fried or fatty foods, dairy, alcohol and spicy foods until your symptoms go away. Follow-up care Follow up with your health care provider as instructed, or if your pain does not begin to improve in the next 24 hours. When to seek medical care Seek prompt medical care if any of the following occur: Pain gets worse or moves to the right lower abdomen New or worsening vomiting or diarrhea Swelling of the abdomen Unable to pass stool for more than three days Fever of 100.4F (38C) or higher, or as directed by your healthcare provider. Blood in vomit or bowel movements (dark red or black color) Jaundice (yellow color of eyes and skin) Weakness, dizziness Chest, arm, back, neck or jaw pain Unexpected vaginal bleeding or missed period Call 911 Call emergency services if any of the following occur: Trouble breathing Confusion Fainting or loss of consciousness Rapid heart rate Seizure Symptoms With Uncertain Cause [Adult] Based on the exam and any tests that were performed today, the exact cause of your symptoms is not certain. While your condition does not seem serious, the signs of a serious problem may take more time to appear. Therefore, it is important for you to watch for any new symptoms or worsening of your condition.Follow up with your doctor or this facility, as directed.A repeat physical exam or additional testing at a later time may uncover a cause for your symptoms that is not evident today. Home Care: Resume your usual activities and diet when this feels comfortable to do so. Follow Up with your doctor, or as advised by our staff.Contact your doctor sooner if your symptoms do not begin to improve in the next few days. [NOTE: If you had an x-ray, CT scan, ultrasound, or ECG (electrocardiogram), it will be reviewed by a specialist. You will be notified of any new findings that may affect your care.] Get Prompt Medical Attention if any of the following occur: Current symptoms get worse New symptoms appear Diarrhea, Uncertain Cause (Adult, Report Pending) Diarrhea has several possible causes. Commonstomach fluis caused by a virus. Food poisoning, bacteria or parasites are other causes for diarrhea. Only diarrhea caused by bacteria or parasites requires treatment with an antibiotic. Diarrhea from a virus or food poisoning improves with simple home treatment. A stool sample is needed to make the diagnosis of an infection with bacteria or parasites. Up to three stool specimens may be required to diagnose This may take up to two days to get the result. It may be necessary to wait until the stool test is complete to make the diagnosis and select the best antibiotic to prescribe. Home Care: If symptoms are severe, rest at home for the next 24 hours or until you are feeling better. You may use acetaminophen (Tylenol) or ibuprofen (Motrin, Advil) to control fever, unless another medicine was prescribed. [NOTE: If you have chronic liver or kidney disease or ever had a stomach ulcer or GI bleeding, talk with your doctor before using these medicines.] (Aspirin should never be used in anyone under 18 years of age who is ill with a fever. It may cause severe liver damage.) Avoid tobacco, caffeine and alcohol, which may worsen your symptoms. If anti-diarrhea medicine was prescribed, take this only as directed. Sometimes anti-diarrhea medicine can make your condition worse if the cause is an infectious diarrhea. Therefore, anti-diarrhea medicine should not be taken for this condition unless advised by your doctor. During The First 12-24 Hours follow the diet below: BEVERAGES: Sport drinks like Gatorade, soft drinks without caffeine; bree murali, mineral water (plain or flavored), decaffeinated tea and coffee. SOUPS: Clear broth, consomm and bouillon DESSERTS: Plain gelatin (Jell-O), popsicles and fruit juice bars. During The Next 24 Hours you may add the following to the above: Hot cereal, plain toast, bread, rolls, crackers Plain noodles, rice, mashed potatoes, chicken noodle or rice soup Unsweetened canned fruit (avoid pineapple), bananas Limit fat intake to less than 15 grams per day by avoiding margarine, butter, oils, mayonnaise, sauces, gravies, fried foods, peanut butter, meat, poultry and fish. Limit fiber; avoid raw or cooked vegetables, fresh fruits (except bananas) and bran cereals. Limit caffeine and chocolate. No spices or seasonings except salt. During The Next 24 Hours Gradually resume a normal diet, as you feel better and your symptoms lessen. Follow Up with your doctor or as advised if you are not improving over the next two days. If you were asked to bring a specimen from home, bring the sample on the day of collection. You may call in 2 days (or as directed) for the results. Get Prompt Medical Attention if any of the following occur: Increasing abdominal pain or constant lower right abdominal pain Continued vomiting (unable to keep liquids down) Frequent diarrhea (more than 5 times a day) Blood in vomit or stool (black or red color) Reduced oral intake Dark urine, reduced urine output Weakness, dizziness, fainting Drowsiness, confusion, stiff neck or seizure Fever of 100.4F (38C) oral or higher, not better with fever medication New rash Hypokalemia Hypokalemia means a low level of potassium in the blood. This most often occurs in patients who take diuretics (water pills). It can also occur due to severe vomiting or diarrhea. A mild case usually causes no symptoms. It is only found with blood testing. More severe potassium loss causes generalized weakness, muscle or abdominal cramping, heart palpitations (rapid or irregular heartbeats) and low blood pressure. Home Care: 1) Take any potassium supplements prescribed. 2) Eat foods rich in potassium. The highest amount is found in artichoke, baked potatoes, spinach, cantaloupe, honeydew melon, cod, halibut, salmon, and scallops. White, red, or zhang beans are also very good sources. A modest amount is found in orange juice, bananas, carrots, and tomato juice. 3) Certain types of diuretics (water pills), such as Lasix (furosemide), require that you take potassium supplements for as long as you take the diuretic pills. If you are taking a diuretic, discuss the need for potassium supplements with your doctor. Follow Up with your doctor for a repeat blood test within the next week or as advised by our staff. Get Prompt Medical Attention if any of the following occur: -- Increased weakness -- Feeling dizzy -- Irregular heartbeat, extra beats or very fast heart rate -- Fainting spell [place] Diet A bland diet is used for patients with an upset stomach. It consists of foods that are mild and easy to digest. It is better to eat small frequent meals rather than three large meals a day. BEVERAGES OK: Fruit juices, non-caffeinated teas and coffee, non-carbonated marmolejo AVOID: Carbonated beverage, caffeinated tea and coffee, all alcoholic beverages BREAD OK: Refined white, wheat or rye bread, buddy or soda crackers, [place] toast, plain rolls, bagels AVOID: Whole-grain bread CEREAL OK: Refined cereals: cooked or ready to eat AVOID: Whole grain cereals and granola, or those containing bran, seeds or nuts DESSERTS OK: Peanut butter and all others except those to "avoid" AVOID: Chocolate, cocoa, coconut, popcorn, nuts, seeds, jam, marmalade FRUITS OK: Canned, cooked, frozen or fresh fruits without seeds or tough skin AVOID: Olives, skin and seeds of fruit MEATS OK: All fresh or preserved meat, fish and fowl AVOID: Any that are prepared with those spices to "avoid" CHEESE & EGGS OK: Eggs, cottage cheese, cream cheese, other cheeses AVOID: All cheeses made with those spices to "avoid" POTATOES & PASTA OK: Potato, rice, macaroni, noodles, spaghetti AVOID: None SOUPS OK: All soups without heavy seasoning AVOID: Soups made with those spices to "avoid" VEGETABLES OK: Canned, cooked, fresh or frozen mildly flavored vegetables without seeds, skins or coarse fiber AVOID: Vegetables prepared with those spices to "avoid"; skin and seeds of vegetables and those with coarse fiber SPICES OK: Salt, lemon and [place] juice, vinegar, all extracts, alexus, cinnamon, thyme, mace, allspice, paprika AVOID: [place] powder, cloves, pepper, seed spices, garlic, gravy pickles, highly seasoned salad dressings Clear Liquid Diet Clear liquids are any liquid that you can see through as well as those that are very easy to digest. This is used while the body is recovering from irritation or infection of the stomach or intestinal tract. It may also be used before special procedures or surgery. This diet is to be used no more than three days. You may include the following items. Adults Adults should drink a total of 23 quarts of liquid per day. It may be easier to drink small frequent servings rather than a few large ones. Liquids can include: Fruit juices.Strained orange juice or lemonade (no pulp), apple, grape and cranberry juice, clear fruit drinks, sports drinks Beverages.Sport drinks, sodas, mineral water (plain or flavored), tea, black coffee, liquid gelatin (add twice the recommended amount of water) Soups.Clear broth, consomm, bouillon Desserts.Plain gelatin, popsicles, fruit juice bars Children Over 2 years old The following liquids are acceptable for children over age 2: Fruit juices.Strained orange juice or lemonade (no pulp), apple, grape and cranberry juice, clear fruit drinks Beverages. Sports drinks, sodas, mineral water (plain or flavored), tea, liquid gelatin (add twice the recommended amount of water) Soups. Clear broth, consomm, bouillon Desserts. Plain gelatin, popsicles, fruit juice bars Children under 2 years old Oral rehydration fluids such are available at drug stores and most grocery stores without a prescription. Ondansetron Hydrochloride Oral tablet What is this medicine? ONDANSETRON (on GUADALUPE se breezy) is used to treat nausea and vomiting caused by chemotherapy. It is also used to prevent or treat nausea and vomiting after surgery. How should I use this medicine? Take this medicine by mouth with a glass of water. Follow the directions on your prescription label. Take your doses at regular intervals. Do not take your medicine more often than directed. Talk to your flue cleaner regarding the use of this medicine in children. Special care may be needed. What side effects may I notice from receiving this medicine? Side effects that you should report to your doctor or [facility] day care center as soon as possible: allergic reactions like skin rash, itching or hives, swelling of the face, lips or tongue breathing problems dizziness fast or irregular heartbeat feeling faint or lightheaded, falls fever and chills swelling of the hands or feet tightness in the chest Side effects that usually do not require medical attention (report to your doctor or health director day care center if they continue or are bothersome): constipation or diarrhea headache What may interact with this medicine? Do not take this medicine with any of the following medications: -apomorphine -cisapride -dofetilide -dronedarone -pimozide -thioridazine -ziprasidone This medicine may also interact with the following medications: -carbamazepine -phenytoin -rifampicin -tramadol -other medicines that prolong the QT interval (cause an abnormal heart rhythm) What if I miss a dose? If you miss a dose, take it as soon as you can. If it is almost time for your next dose, take only that dose. Do not take double or extra doses. Where should I keep my medicine? Keep out of the reach of children. Store between 2 and 30 degrees C (36 and 86 degrees F). Throw away any unused medicine after the expiration date. What should I tell my health care provider before I take this medicine? They need to know if you have any of these conditions: heart disease history of irregular heartbeat liver disease low levels of magnesium or potassium in the blood an unusual or allergic reaction to ondansetron, granisetron, other medicines, foods, dyes, or preservatives or trying to get breast-feeding What should I watch for while using this medicine? Check with your doctor or health director day care center right away if you have any sign of an allergic reaction. You have been given the following additional information: Abdominal Pain, Unknown Cause, (Female) Symptoms With Uncertain Cause Diarrhea, Unk Cause (Adult) Report Pendg Hypokalemia Diet, [place] (Adult) Diet, Clear Liquid Ondansetron Hydrochloride Oral tablet (Electronically signed by Princess Lange P.A.-C 02/06/2017 19:31)
--- NOTE | 2017-02-07 15:56 | ED MAR SUMMARY ---
..... Medication Administration Record [facility] [address] [place] [address] Patient: ASAD MARKHAM Visit ID: [id number] 66y, F Weight: 62.5 kg Height/Length: 60 in BMI: 26.9 ALLERGIES: Codeine, Sulfa Drugs Start 13:51 02/06/2017 Sapphire Esparza RBrittanyN., Stop 16:29 02/06/2017 Sapphire Esparza R.N. Medication Administered: IV NS (SALINE), Dose: IV Fluids over 1 hour(s), Rate: 1000 mL/hr, Dispensed: 1000 mL bag, Site: #1. Medication Ordered: IV NS : initial bolus 1000 mL (1000 mL/hr), then 1000 mL/hr for X1 (NOW); Breezy. Start 14:16 02/06/2017 Sapphire Esparza, R.N., Stop 16:29 02/06/2017 Sapphire Esparza, R.N. Medication Administered: KCL [IVPB] (POTASSIUM CHLORIDE), Dose: 20 meq IVPB over 1 hour(s), Rate: 100 mL/hr, Dispensed: 100 mL bag, Site: #1 right AC. Medication Ordered: KCl IV 20 meq/100mL (Run no faster than 10 units/hr).
--- NOTE | 2017-02-07 15:56 | ED MED RECONCILIATION SUMMARY ---
Patient: ASAD MARKHAM Medication Reconciliation Report [facility] VisitID: [id number] [address] [address] 66y, F Registration Date/Time: 02/06/2017 Weight: 62.5 kg Height/Length: 60 in. BMI: 26.9 ALLERGIES: Codeine, Sulfa Drugs The patient's Home Medications are listed below: THE FOLLOWING MEDICATIONS NEED TO BE RECONCILED: Atenolol Oral Atorvastatin Calcium Oral Cilostazol Oral Levothyroxine Sodium Oral Omeprazole Oral Warfarin Sodium Oral 7.5 mg, 5 x week 7.5 mg/ 2 x week 5 mg The source(s) of the original Home Medication information: patient The following Medications were given to the patient in the Emergency Department: KCL [IVPB] IVPB bolus 0, then 20 meq 100 mL/hr, administered: 02/06/2017 2:16:00 PM IV NS IV Fluids bolus 0, then 1000 mL/hr, administered: 02/06/2017 1:51:00 PM The following Medications were prescribed to the patient: Zofran (orally disintegrating tablets) 4 mg: take 1 orally every 6 hours for 5 days as needed for nausea. Dispense fifteen (15). No refill. Substitution is permissible. -- Princess Lange PBrittanyACarolee Klor-Con 10 mEq: take 1 tablet orally every 8 hours. Dispense twenty (20). No refills. Substitution is permissible. -- Princess Lange P.ABrittany-Regan
--- NOTE | 2017-02-07 15:56 | ED MAR SUMMARY ---
..... Medication Administration Record [facility] [address] [place] [address] Patient: ASAD MARKHAM Visit ID: [id number] 66y, F Weight: 62.5 kg Height/Length: 60 in BMI: 26.9 ALLERGIES: Codeine, Sulfa Drugs Start 13:51 02/06/2017 Sapphire Esparza RBrittanyN., Stop 16:29 02/06/2017 Sapphire Esparza R.N. Medication Administered: IV NS (SALINE), Dose: IV Fluids over 1 hour(s), Rate: 1000 mL/hr, Dispensed: 1000 mL bag, Site: #1. Medication Ordered: IV NS : initial bolus 1000 mL (1000 mL/hr), then 1000 mL/hr for X1 (NOW); Breezy. Start 14:16 02/06/2017 Sapphire Esparza, R.N., Stop 16:29 02/06/2017 Sapphire Esparza, R.N. Medication Administered: KCL [IVPB] (POTASSIUM CHLORIDE), Dose: 20 meq IVPB over 1 hour(s), Rate: 100 mL/hr, Dispensed: 100 mL bag, Site: #1 right AC. Medication Ordered: KCl IV 20 meq/100mL (Run no faster than 10 units/hr).
== END 2017-02-06 14:40 | disposition home or self-care (01) ==
LOC: ED SRH 12:28
DX: R10.84 Generalized abdominal pain (principal); G89.29 Other chronic pain; R19.7 Diarrhea, unspecified; E87.6 Hypokalemia; I10 Essential (primary) hypertension; K21.9 Gastro-esophageal reflux disease without esophagitis; E78.5 Hyperlipidemia, unspecified; E05.90 Thyrotoxicosis, unspecified without thyrotoxic crisis or storm; E03.9 Hypothyroidism, unspecified; Z79.01 Long term (current) use of anticoagulants
CPT/HCPCS: 90004; 90100; 90648; 91585; 92235; 92720; 93140; 94001; 94060; 95059